=== PATIENT | female | born 1965 | race Caucasian/White ===

== ENCOUNTER → 2016-07-30 | Outpatient (CLI) | payer OTHER ==
--- NOTE | ~2016-07-30 | CR141 ---
[facility] A Service of [facility] & [facility] RADIOLOGY TEXT RESULTS PATIENT: HUMBLE ERAZO LOCATION: [facility] : 63 UNIT #: [id number] AGE: [address]: UMU Oquendo APRN SEX: F ORDER DR: [id number] [place], [place] [address] [id number] O MR#: [id number] Acc #: [id number] NAME: HUMBLE ERAZO : 1965 SEX: F STUDY DATE/TIME: 07/30/2016 11:43 UNIT: [facility] ROOM: STUDY DESCRIPTION: CR Hand Min 3 Views Lt Ordering Physician: Umu Wagner Aprn MEDICAL IMAGING REPORT This report is preliminary unless electronic signature is present EXAM 3 views left hand 07/30/2016 HISTORY Bilateral hand pain for 1 month. No documented injury. History of breast cancer. COMPARISON None. FINDINGS No fracture. No dislocation. No osteolytic or osteoblastic abnormalities identified. Benign-appearing cystic changes are seen within the lunate bone. IMPRESSION Benign appearing cystic-type changes are seen within the lunate bone. No acute left hand abnormality. No convincing evidence of metastatic disease. Dictated by... Naty Coelho M.D. THIS IS AN ELECTRONICALLY VERIFIED REPORT Naty Coelho M.D. at 08/02/2016 8:33 AM JAKE/hoa TD: 07/30/2016 19:22 JOB #: [id number] MEDICAL IMAGING REPORT Page 1 of 1 COPY
--- NOTE | ~2016-07-30 | CR170 ---
[facility] A Service of [facility] RADIOLOGY TEXT RESULTS PATIENT: HUMBLE ERAZO LOCATION: [facility] : 63 UNIT #: [id number] AGE: [address]: UMU Oquendo APRN SEX: F ORDER DR: [id number] [place], [place] [address] [id number] O MR#: [id number] Acc #: [id number] NAME: HUMBLE ERAZO : 1965 SEX: F STUDY DATE/TIME: 07/30/2016 11:44 UNIT: [facility] ROOM: STUDY DESCRIPTION: CR Knee 2 Views Rt Attending Physician: Umu Wagner Aprn Referring Physician: Umu Wagner Aprn Ordering Physician: Umu Wagner Aprn Primary Care Physician: Umu Wagner Aprn MEDICAL IMAGING REPORT This report is preliminary unless electronic signature is present EXAMINATION 2 views of the right knee. DATE 07/30/2016 HISTORY Bilateral knee pain for 1 month. No known injury. History of breast cancer. COMPARISON None. FINDINGS AP and lateral projection of the knee shows smooth articular anatomy without indication of fracture or dislocation at the major weight-bearing surface of the knee. There is no indication of radiopaque foreign body about the knee surface or joint effusion. IMPRESSION Normal 2 views of the right knee. Dictated by... Naty Coelho M.D. THIS IS AN ELECTRONICALLY VERIFIED REPORT Naty Coelho M.D. at 08/02/2016 8:33 AM JAKE/meka TD: 07/30/2016 19:43 JOB #: [id number] [facility] A Service [facility] RADIOLOGY TEXT RESULTS PATIENT: HUMBLE ERAZO LOCATION: [facility] : 63 UNIT #: [id number] AGE: [address]: UMU Oquendo, PROGRESSIVE CARE MANAGER SEX: F ORDER DR: MEDICAL IMAGING REPORT Page 1 of 1 COPY
--- NOTE | ~2016-07-30 | CR142 ---
[facility] A Service of [facility] RADIOLOGY TEXT RESULTS PATIENT: HUMBLE ERAZO LOCATION: [facility] : 63 UNIT #: [id number] AGE: [address]: UMU Oquendo APRN SEX: F ORDER DR: [id number] [place], [place] [address] [id number] O MR#: [id number] Acc #: [id number] NAME: HUMBLE ERAZO : 1965 SEX: F STUDY DATE/TIME: 07/30/2016 11:42 UNIT: [facility] ROOM: STUDY DESCRIPTION: CR Hand Min 3 Views Rt Attending Physician: Umu Oquendo Referring Physician: Umu Oquendo Ordering Physician: Dhiraj Oquendo Primary Care Physician: Umu Oquendo MEDICAL IMAGING REPORT This report is preliminary unless electronic signature is present EXAM Three views right hand dated 07/30/2016 HISTORY A 51-year-old female with bilateral hand pain for 1 month. History of breast cancer. COMPARISON None. FINDINGS No fracture. No dislocation. No osteolytic or osteoblastic abnormalities. Benign appearing cystic foci are demonstrated within the lunate bone measuring up to 4 mm. Otherwise, no appreciable osteophytic changes are evident. Joint spaces appear well maintained. IMPRESSION Benign-appearing bone cyst within the lunate bone. Otherwise, normal 3 views of the right hand. Dictated by... Naty Coelho M.D. THIS IS AN ELECTRONICALLY VERIFIED REPORT Naty Coelho M.D. at 08/02/2016 8:33 AM JKAE/pavan TD: 07/30/2016 19:24 JOB #: [id number] [facility] A Service [facility] RADIOLOGY TEXT RESULTS PATIENT: HUMBLE ERAZO LOCATION: [facility] : 63 UNIT #: [id number] AGE: [address]: UMU Oquendo, AUDIO PRODUCTION MANAGER SEX: F ORDER DR: MEDICAL IMAGING REPORT Page 1 of 1 COPY
--- NOTE | ~2016-07-30 | CR63 ---
[facility] A Service of [facility] & [facility] RADIOLOGY TEXT RESULTS PATIENT: HUMBLE ERAZO LOCATION: [facility] : 63 UNIT #: [id number] AGE: [address]: UMU Oquendo APRN SEX: F ORDER DR: [id number] [facility] [address] [place], [place] [address] [id number] O MR#: [id number] Acc #: [id number] NAME: HUMBLE ERAZO : 1965 SEX: F STUDY DATE/TIME: 07/30/2016 11:42 UNIT: [facility] ROOM: STUDY DESCRIPTION: CR Chest 2 View Attending Physician: Umu Oquendo Referring Physician: Umu Oquendo Ordering Physician: Dhiraj Oquendo Primary Care Physician: Umu Oquendo MEDICAL IMAGING REPORT This report is preliminary unless electronic signature is present EXAM Two-view chest, 07/30/2016 HISTORY A 51-year-old female with shortness of air for 1 month. COMPARISON STUDIES Comparison chest 06/26/15 FINDINGS 2 views of the chest demonstrate clear lungs. No pleural effusion or pneumothorax. Heart size mediastinum normal. Pulmonary vasculature normal. IMPRESSION No acute cardiopulmonary findings Dictated by... Ted Driscoll M.D. THIS IS AN ELECTRONICALLY VERIFIED REPORT Ted Driscoll M.D. at 07/30/2016 5:04 PM HERMAN/pavan TD: 07/30/2016 14:52 JOB #: [id number] MEDICAL IMAGING REPORT Page 1 of 1 COPY
--- NOTE | ~2016-07-30 | CR169 ---
[facility] A Service of [facility] & [facility] RADIOLOGY TEXT RESULTS PATIENT: HUMBLE ERAZO LOCATION: [facility] : 63 UNIT #: [id number] AGE: [address]: UMU Oquendo APRN SEX: F ORDER DR: [id number] [place], [place] [address] [id number] O MR#: [id number] Acc #: [id number] NAME: HUMBLE ERAZO : 1965 SEX: F STUDY DATE/TIME: 07/30/2016 11:44 UNIT: [facility] ROOM: STUDY DESCRIPTION: CR Knee 2 Views Lt Ordering Physician: Umu Wagner Aprn MEDICAL IMAGING REPORT This report is preliminary unless electronic signature is present EXAM 2 views of the left knee 07/30/2016 HISTORY Bilateral knee pain for 1 month. No documented injury. History of breast cancer. COMPARISON None. FINDINGS AP and lateral projection of the knee shows smooth articular anatomy without indication of fracture or dislocation at the major weight-bearing surface of the knee. There is no indication of radiopaque foreign body about the knee surface or joint effusion. IMPRESSION Normal knee. Dictated by... Naty Coelho M.D. THIS IS AN ELECTRONICALLY VERIFIED REPORT Naty Coelho M.D. at 08/02/2016 8:33 AM LLH/pcl TD: 07/30/2016 19:24 JOB #: [id number] MEDICAL IMAGING REPORT Page 1 of 1 COPY
== END | disposition home or self-care (01) ==
LOC: CRAD 11:18
DX: M79.641 Pain in right hand (principal); M85.441 Solitary bone cyst, right hand; J44.9 Chronic obstructive pulmonary disease, unspecified; M79.642 Pain in left hand; M25.561 Pain in right knee; M25.562 Pain in left knee
CPT/HCPCS: 71020; 73130; 73560